=== PATIENT | male | born 1985 | race Caucasian/White ===

== ENCOUNTER 2017-01-24 17:19 | Emergency (ER) | payer OTHER, BC ==
[2017-01-24 17:37] VITALS: BP 126/93
[2017-01-24] MEDS ORDERED: Lidocaine 1% 50 ML MDV INJECT ONE (17:43)
--- NOTE | 2017-01-24 17:50 | EDM.PDOC ---
ED HPI Skin/Rash - General Chief Complaint: Laceration Stated Complaint: RT MIDDLE FINGER LAC Time Seen by Provider: 01/24/17 17:45 Source: Reports: Patient History Limitations: Reports: No limitations - History of Present Illness INITIAL COMMENTS - FREE TEXT/NARRATIVE: Patient is a 31-year-old male who presents ED complaining of a laceration to the tip of the right middle finger. 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 Patient states it bled quite a bit and was controlled with direct pressure. He has minimal pain at this time. Denies any further injuries to the hand. States his tetanus is up-to-date. Past medical history noncontributing. 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(s) - Related Data Allergies Allergy/AdvReac Type Severity Reaction Status Date / Time No Known Allergies Allergy Verified 01/24/17 17:37 Home Meds: Ambulatory Orders Medication Instructions Recorded Confirmed Loratadine/Pseudoephedrine 1 tab PO ONCALL PRN 08/20/16 01/24/17 [Claritin-D 24 Hour Tablet] Acetaminophen/oxyCODONE [Percocet 1 tab PO Q6H PRN #15 tablet 01/24/17 325-5 MG] Doxycycline [Vibramycin] 100 mg PO Q12HR #28 cap 01/24/17 Sertraline [Zoloft] 50 mg PO DAILY 01/24/17 01/24/17 Past Medical History - Past Health History Medical/Surgical History: Denies Medical/Surgical History HEENT History: Reports: Sinusitis Genitourinary History: Reports: Renal calculus Psychiatric History: Reports: Depression - Infectious Disease History Infectious Disease History: Reports: Chicken pox Social & Family History - Family History Family Medical History: Noncontributory - Tobacco Use Smoking Status *Q: Never Smoker Second Hand Smoke Exposure: No - Caffeine Use Caffeine Use: Reports: Soda - Alcohol Use Days Per Week of Alcohol Use: 0 - Recreational Drug Use Recreational Drug Use: No ED ROS GENERAL - Review of Systems Review Of Systems: See Below Musculoskeletal: Reports: other (Crush injury to the tip of the right middle finger with a laceration on the volar aspect) Skin: Reports: other (Laceration) Neurological: Reports: Numbness (Right middle finger), Tingling (Right middle finger) ED EXAM, SKIN/RASH Exam: See Below Exam Limited By: No limitations General Appearance: alert, WD/WN, no apparent distress Ears: hearing grossly normal Nose: normal inspection Throat/Mouth: Normal voice, No airway compromise Neck: normal inspection, supple Respiratory/Chest: no respiratory distress, no accessory muscle use Cardiovascular: normal peripheral pulses, regular rate, rhythm Extremities: other (Laceration to the volar aspect right middle finger with swelling and deformity noted today. No pain noted to palpation of the adjacent fingers, hand, wrist, forearm, elbow, upper arm, or shoulder,) Neurological: alert, oriented, normal cognition, no motor/sensory deficits ( Mild numbness noted to the tip of the affected finger) Psychiatric: normal affect, normal mood Skin: Warm, Dry, Normal color ED SKIN PROCEDURES - Laceration/Wound Repair Right Distal Finger Lac/wound length in cm: 1.5 Appearance: subcutaneous Distal NVT: neuro & vascular intact Anesthetic type: digital Local anesthesia - Lidocaine (Xylocaine): 1% plain Local anesthetic volume: other (8) Skin prep: chlorhexidine (hibiciens), saline, sterile drape Exploration/Debridement/Repair: wound explored, in a bloodless field, explored to base, no foreign material found Closed with: sutures Suture size: 4-0 # of sutures: 8 Suture type: prolene Drain placement: No Sterile dressing applied: nurse Tetanus status addressed: Yes Complications: No Course - Vital Signs Last Recorded V/S: Last Vital Signs Temp 97.5 F 01/24/17 17:33 Pulse 95 01/24/17 17:33 Resp 18 01/24/17 17:33 BP 126/93 H 01/24/17 17:33 Pulse Ox 95 01/24/17 17:33 - Orders/Labs/Meds Orders: Active Orders 24 hr Category Date Time Status Peripheral IV Care [RC] . DIRECTED Care 01/24/17 18:38 Active Fingers Third Digit Rt F7 [CR] Stat Exams 01/24/17 17:43 Taken Peripheral IV Insertion Adult [OM.PC] Stat Oth 01/24/17 18:38 Ordered Meds: Medications Discontinued Medications Generic Name Dose Route Start Last Admin Trade Name Freq PRN Reason Stop Dose Admin Cefazolin Sodium/Dextrose 1 gm 50 mls @ 100 mls/hr 01/24/17 18:37 01/24/17 19 :15 / Premix IV 01/24/17 19:06 100 mls/hr ONETIME ONE Administration Lidocaine HCl 50 ml 01/24/17 17:43 01/24/17 17:56 Xylocaine 1% INJECT 01/24/17 17:44 50 ml ONETIME ONE Administration Sodium Chloride 10 ml 01/24/17 18:37 01/24/17 19:16 Saline Flush FLUSH 10 ml ASDIRECTED PRN Administration Keep Vein Open - Re-Assessments/Exams Free Text/Narrative Re-Assessment/Exam: Ordered lidocaine 1% and also x-ray of the right third digit. Tetanus is up-to- date per patient. 01/24/17 17:55 01/24/17 18:38 X-ray of the right middle finger revealed tuft fracture. Minimally displaced. Ordered ancef 1 gram IV. 01/24/17 20:03 Complicated laceration to the tip of the right middle finger closed with 8 #4.0 sutures with no complications. Splint and dressing applied by nursing staff. Patient will be discharged home with instructions for open finger fracture. Prescription for doxycycline 100mg twice a day for 14 days and short course of percocet tabs. Departure - Departure Time of Disposition: 20:06 Disposition: Home, Self-Care 01 Condition: good Clinical Impression: Open fracture of finger Qualifiers: Encounter type: initial encounter Finger: middle finger Phalanx: distal Fracture alignment: displaced Laterality: right Qualified Code(s): S62.632B - Displaced fracture of distal phalanx of right middle finger, initial encounter for open fracture Prescriptions: Doxycycline [Vibramycin] 100 mg PO Q12HR #28 cap Acetaminophen/oxyCODONE [Percocet 325-5 MG] 1 tab PO Q6H PRN #15 tablet PRN Reason: Pain Instructions: Laceration Care, Adult, [id number], Stitches, [place], or Adhesive Wound Closure, [id number], Pain Medicine Instructions, [id number] Referrals: PCP,None [Primary Care Provider] - Omega Perdomo MD [Physician] - Mitesh Easton MD [Physician] - Forms: ED Department Discharge, Return to Work/School Form Additional Instructions: Cleanse site twice daily with soap and water. Pat dry and reapply antibiotic treatment. Cover with new dressing. Keep area clean and dry. Keep splint on until evaluated by orthopedic surgeon only taking off to cleanse. Elevate when able to reduce swelling and pain. Apply ice to affected areas 6 times daily, 30 minutes in duration, do not place ice directly on the skin. Take Tylenol and ibuprofen in alternating fashion for pain. For severe pain take Percocet one tab every 6 hours as needed. No driving while taking this medication. Followup with orthopedic surgeon in the next week. Sutures will need to be removed in approximately 10-14 days. Return back to the ED for increased pain, increased redness, purulent drainage, or swelling. Refrain from any activities utilizing the right hand. - My Orders Last 24 Hours: My Active Orders 01/24/17 17:43 Fingers Third Digit Rt F7 [CR] Stat 01/24/17 18:38 Peripheral IV Care [RC] . DIRECTED Peripheral IV Insertion Adult [OM.PC] Stat - Assessment/Plan Last 24 Hours: My Active Orders 01/24/17 17:43 Fingers Third Digit Rt F7 [CR] Stat 01/24/17 18:38 Peripheral IV Care [RC] . DIRECTED Peripheral IV Insertion Adult [OM.PC] Stat
[2017-01-24] MEDS ORDERED: Sodium Chloride 0.9% 10 ML Syringe FLUSH PRN (18:37)
[2017-01-24] MEDS ORDERED: ceFAZolin 1 GM in Premix Bag 1 BAG IV ONE (18:37)
--- NOTE | 2017-01-25 07:26 | CR ---
Right third finger: Four views centered to the right third finger were obtained. Comparison: Previous right finger or hand exam is not available. Comminuted fracture noted within the distal phalanx. Mild displacement seen of the distal tuft fragments. No proximal abnormality is seen. Soft tissue swelling is noted. Impression: 1. Comminuted distal phalanx fracture of the right third finger. Soft tissue swelling. Diagnostic code #3
== END 2017-01-24 20:29 | disposition home or self-care (01) ==
LOC: JD.ED 17:19
DX: S62.632B Displaced fracture of distal phalanx of right middle finger, initial encounter for open fracture (principal); W20.8XXA Other cause of strike by thrown, projected or falling object, initial encounter; Y92.69 Other specified industrial and construction area as the place of occurrence of the external cause; Y99.0 Civilian activity done for income or pay; F32.9 Major depressive disorder, single episode, unspecified; Z79.899 Other long term (current) drug therapy
CPT/HCPCS: 12001; 73140; 96365; 99283; J0690; J7050; 99284-25

== ENCOUNTER 2017-06-23 15:30 | Emergency (ER) | payer OTHER ==
[2017-06-23 15:46] VITALS: BP 130/93
[2017-06-23] MEDS ORDERED: Lidocaine 1% 50 ML MDV INJECT ONE (15:58)
--- NOTE | 2017-06-23 16:03 | EDM.PDOC ---
ED HPI GENERAL MEDICAL PROBLEM - General Chief Complaint: Laceration Stated Complaint: LEFT THUMB LACERATION Time Seen by Provider: 06/23/17 15:49 Source of Information: Reports: Patient, RN Notes Reviewed - History of Present Illness INITIAL COMMENTS - FREE TEXT/NARRATIVE: 31-year-old male suffered laceration injury to left thumb a short time ago work. States he cut the thumb on a sharp metal edge. The thumb is not long but was gaping. 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 He is up-to-date with tetanus with his last tetanus immunization only about 5 months ago. - Related Data Allergies Allergy/AdvReac Type Severity Reaction Status Date / Time No Known Allergies Allergy Verified 06/23/17 15:42 Home Meds: Home Meds Loratadine/Pseudoephedrine [Claritin-D 24 Hour Tablet] 1 tab PO ONCALL PRN 08/20 [History] Sertraline [Zoloft] 50 mg PO DAILY 01/24/17 [History] Past Medical History - Past Health History Medical/Surgical History: Denies Medical/Surgical History HEENT History: Reports: Sinusitis Genitourinary History: Reports: Renal Calculus Psychiatric History: Reports: Anxiety - Infectious Disease History Infectious Disease History: Reports: Chicken Pox Social & Family History - Family History Family Medical History: Noncontributory - Tobacco Use Smoking Status *Q: Never Smoker Second Hand Smoke Exposure: No - Caffeine Use Caffeine Use: Reports: Soda - Alcohol Use Days Per Week of Alcohol Use: 0 - Recreational Drug Use Recreational Drug Use: No ED ROS GENERAL - Review of Systems Review Of Systems: See Below Constitutional: Reports: No Symptoms HEENT: Reports: No Symptoms Respiratory: Reports: No Symptoms Cardiovascular: Reports: No Symptoms GI/Abdominal: Reports: No Symptoms Musculoskeletal: Reports: Other (Laceration injury left thumb) Neurological: Denies: Numbness, Tingling ED EXAM, SKIN/RASH Exam: See Below General Appearance: Alert, No Apparent Distress Head: Atraumatic Neck: Supple Respiratory/Chest: No Respiratory Distress Extremities: Other (Less than 1 cm laceration injury volar aspect of left thumb over the IP joint the laceration is gaping. No active bleeding at this time. No other injury to the thumb or remainder of that hand.) Neurological: No Motor/Sensory Deficits Skin: Warm, Dry, Normal Color ED SKIN PROCEDURES - Laceration/Wound Repair Left Hand Lac/Wound length In cm: 1 Appearance: Linear Anesthetic Type: Local Local Anesthesia - Lidocaine (Xylocaine): 1% Plain Suture Size: 3-0 # of Sutures: 3 Course - Vital Signs Last Recorded V/S: Last Vital Signs Temp 99.5 F 06/23/17 15:43 Pulse 96 06/23/17 15:43 Resp 16 06/23/17 15:43 BP 130/93 H 06/23/17 15:43 Pulse Ox 98 06/23/17 15:43 - Orders/Labs/Meds Meds: Medications Discontinued Medications Generic Name Dose Route Start Last Admin Trade Name Freq PRN Reason Stop Dose Admin Lidocaine HCl 50 ml 06/23/17 15:58 06/23/17 16:25 Xylocaine 1% INJECT 06/23/17 15:59 50 ml ONETIME ONE Administration Departure - Departure Time of Disposition: 16:15 Disposition: Home, Self-Care 01 Condition: Fair Clinical Impression: Laceration of finger, Laceration of skin of thumb - Discharge Information Referrals: PCP,None [Primary Care Provider] - Forms: ED Department Discharge Additional Instructions: Laceration care instructions, Kang stitches in for about 10 days, there is no charge if you have those removed at our [facility] clinic, call [phone] for appointment.
== END 2017-06-23 16:43 | disposition home or self-care (01) ==
LOC: JD.ED 15:30
DX: S61.012A Laceration without foreign body of left thumb without damage to nail, initial encounter (principal); F41.9 Anxiety disorder, unspecified; Z87.442 Personal history of urinary calculi; Z79.899 Other long term (current) drug therapy; W45.8XXA Other foreign body or object entering through skin, initial encounter; Y93.89 Activity, other specified; Y99.0 Civilian activity done for income or pay
CPT/HCPCS: 12001; 99282-25; 99283-25

== ENCOUNTER 2020-05-20 17:55 | Emergency (ER) | payer BC ==
[2020-05-20 18:19] VITALS: BP 150/96; PULSE 115
--- NOTE | 2020-05-20 19:11 | EDM.PDOC ---
<Aj Nguyen - Last Filed: 05/20/20 19:03> ED HPI GENERAL MEDICAL PROBLEM - General Chief Complaint: Chest Pain Stated Complaint: L SIDE CHEST PAIN AND ARM PAIN X 3 DAYS Time Seen by Provider: 05/20/20 18:48 Source of Information: Reports: Patient History Limitations: Reports: No Limitations - History of Present Illness INITIAL COMMENTS - FREE TEXT/NARRATIVE: Vinicius is a 34 YO male presenting to the ED with 3 day history of chest pain. Pain is described as intermittent periods of sharp, stabbing pain evolving into a deep ache. Pain began in the area around the left nipple and is now radiating to the midaxillary region and left arm. Currently, pain is rated at a 5 out of 10. Nothing relieves pain. Pain is worsened upon deep respiration and occasionally physical activity. Additional complaints are unable to remember events of yesterday, and narrowing vision when pain becomes severe. Denies loss of consciousness, dizziness, fever, fatigue, cough, shortness of breath upon exercise, palpitations, nausea, vomiting, constipation. Onset Date: 05/17/20 Duration: Day(s): Location: Reports: Chest, Upper Extremity, Left Quality: Reports: Ache, Dull, Sharp, Stabbing Improves with: Reports: None Worsens with: Reports: Breathing, Movement Associated Symptoms: Denies: Fever/Chills, Nausea/Vomiting Left Chest Pain Score (Numeric/FACES): 5 - Related Data Allergies Allergy/AdvReac Type Severity Reaction Status Date / Time No Known Allergies Allergy Verified 05/20/20 18:19 Home Meds: Home Meds Orphenadrine [Norflex] 100 mg PO BID PRN #20 tab 05/20/20 [Rx] predniSONE 20 mg PO ASDIRECTED #15 tab 05/20/20 [Rx] Past Medical History - Past Health History Medical/Surgical History: Denies Medical/Surgical History Cardiovascular History: Reports: None Respiratory History: Reports: None Musculoskeletal History: Reports: None Psychiatric History: Reports: Anxiety Social & Family History - Family History Family Medical History: Noncontributory Cardiac: Reports: None - Tobacco Use Smoking Status *Q: Never Smoker Tobacco Use Within Last Twelve Months: Smokeless Tobacco Packs/Tins Daily: 0.3 - Caffeine Use Caffeine Use: Reports: Soda - Recreational Drug Use Recreational Drug Use: No ED ROS GENERAL - Review of Systems Review Of Systems: See Below (7) Constitutional: Denies: Fever, Chills, Fatigue Respiratory: Denies: Shortness of Breath, Cough Cardiovascular: Reports: Chest Pain. Denies: Dyspnea on Exertion, Lightheadedness, Palpitations, PND GI/Abdominal: Reports: Diarrhea. Denies: Abdominal Pain, Constipation, Nausea, Vomiting Musculoskeletal: Reports: Arm Pain Skin: Reports: No Symptoms Neurological: Denies: Dizziness, Headache, Syncope ED EXAM, GENERAL - Physical Exam Exam: See Below Exam Limited By: No Limitations General Appearance: Alert Eye Exam: Bilateral Eye: PERRL Head: Atraumatic, Normocephalic Respiratory/Chest: No Respiratory Distress, Normal Breath Sounds, No Accessory Muscle Use (Pain aggravated by deep respiration. ) Cardiovascular: Normal Peripheral Pulses, Regular Rate, Rhythm, No Gallop, No Murmur, No Rub, Other (Pain worsens upon palpation. ) Skin Exam: Warm, Dry. No: Diaphoretic Departure - Departure Disposition: Home, Self-Care 01 Clinical Impression: Acute chest wall pain Instructions: Chest Wall Pain, [id number] Referrals: Kassidy Rubin MD [Primary Care Provider] - Forms: ED Department Discharge Additional Instructions: You were evaluated in the ER today regarding your left-sided chest discomfort. Laboratory evaluation and EKG, chest x-ray were done at today's visit, and this demonstrates no acute abnormalities, you are not suffering from a heart attack at today's visit. It is very likely that the chest discomfort you are having is more musculoskeletal, or nerve irritation in nature. As this was reproducible on exam. You have been given a prescription for prednisone, please take as directed, you have also been given a prescription for Norflex, please take as needed for mu scle spasms at night. Highly recommend you try to decrease the amount of work you are doing, as it seems you are overexerting your self, try to keep yourself well-hydrated and eat several small snacks throughout the day if you are not able to have a full meal during your work shift. Please return to the ER at any time if your symptoms should change or worsen. Sepsis Event Note (ED) - Evaluation Sepsis Screening Result: No Definite Risk <Leydi Washington - Last Filed: 05/20/20 20:17> EKG INTERPRETATION EKG Date: 05/20/20 Time: 18:27 Rhythm: NSR Rate (Beats/Min): 87 Irving: LAD-Left Irving Deviation (-68 ) P-Wave: Present QRS: Normal ST-T: Normal QT: Normal Comparison: NA - No Prior EKG EKG Interpretation Comments: Sinus rhythm 87 bpm, incomplete right bundle branch block and left anterior fascicular block pattern, near Q waves in 2 3 and aVF, consider possible old inferior wall DC. Otherwise no acute ischemic changes noted. Reviewed by myself and Dr. Carlos. Course - Vital Signs Last Recorded V/S: Last Vital Signs Temp 97 F 05/20/20 18:16 Pulse 115 H 05/20/20 18:16 Resp 16 05/20/20 18:16 BP 150/96 H 05/20/20 18:16 Pulse Ox 99 05/20/20 18:16 - Orders/Labs/Meds Orders: Active Orders 24 hr Category Date Time Status EKG 12 Lead [EKG Documentation Completion] [RC] ROUTINE Care 05/20/20 18:21 Active Chest 1V Frontal [CR] Stat Exams 05/20/20 18:53 Ordered Labs: Laboratory Tests 05/20/20 05/20/20 05/20/20 Range/Units 19:25 19:25 19:25 WBC 7.70 (4.23-9.07) K/mm3 RBC 5.03 (4.63-6.08) M/mm3 Hgb 15.5 (13.7-17.5) gm/dl Hct 45.1 (40.1-51.0) % MCV 89.7 (79.0-92.2) fl MCH 30.8 (25.7-32.2) pg MCHC 34.4 (32.2-35.5) g/dl RDW Std Deviation 42.0 (35.1-43.9) fL Plt Count 243 (163-337) K/mm3 MPV 10.2 (9.4-12.3) fl Neut % (Auto) 72.1 H (34.0-67.9) % Lymph % (Auto) 17.5 L (21.8-53.1) % [place] % (Auto) 7.5 (5.3-12.2) % Eos % (Auto) 2.1 (0.8-7.0) Baso % (Auto) 0.4 (0.1-1.2) % Neut # (Auto) 5.55 H (1.78-5.38) K/mm3 Lymph # (Auto) 1.35 (1.32-3.57) K/mm3 [place] # (Auto) 0.58 (0.30-0.82) K/mm3 Eos # (Auto) 0.16 (0.04-0.54) K/mm3 Baso # (Auto) 0.03 (0.01-0.08) K/mm3 PT 11.2 (9.7-12.0) SECONDS INR 1.03 APTT 27 (22-31) SECONDS Sodium 141 (136-145) mEq/L Potassium 3.5 (3.5-5.1) mEq/L Chloride 106 (98-107) mEq/L Carbon Dioxide 25 (21-32) mEq/L Anion Gap 13.5 (5-15) BUN 11 (7-18) mg/dL Creatinine 1.1 (0.7-1.3) mg/dL Est Cr Clr Drug Dosing 94.62 mL/min Estimated GFR (MDRD) > 60 (>60) mL/min BUN/Creatinine Ratio 10.0 L (14-18) Glucose 98 (74-106) mg/dL Calcium 8.7 (8.5-10.1) mg/dL Magnesium 2.0 (1.8-2.4) mg/dl Total Bilirubin 0.7 (0.2-1.0) mg/dL AST 12 L (15-37) U/L ALT 13 L (16-63) U/L Alkaline Phosphatase 71 (46-116) U/L Troponin I < 0.017 (0.00-0.056) ng/mL NT-Pro-B Natriuret Pep (0-125) pg/mL Total Protein 6.9 (6.4-8.2) g/dl Albumin 4.1 (3.4-5.0) g/dl Globulin 2.8 gm/dL Albumin/Globulin Ratio 1.5 (1-2) /07/02 Range/Units 19:25 WBC (4.23-9.07) K/mm3 RBC (4.63-6.08) M/mm3 Hgb (13.7-17.5) gm/dl Hct (40.1-51.0) % MCV (79.0-92.2) fl MCH (25.7-32.2) pg MCHC (32.2-35.5) g/dl RDW Std Deviation (35.1-43.9) fL Plt Count (163-337) K/mm3 MPV (9.4-12.3) fl Neut % (Auto) (34.0-67.9) % Lymph % (Auto) (21.8-53.1) % [place] % (Auto) (5.3-12.2) % Eos % (Auto) (0.8-7.0) Baso % (Auto) (0.1-1.2) % Neut # (Auto) (1.78-5.38) K/mm3 Lymph # (Auto) (1.32-3.57) K/mm3 [place] # (Auto) (0.30-0.82) K/mm3 Eos # (Auto) (0.04-0.54) K/mm3 Baso # (Auto) (0.01-0.08) K/mm3 PT (9.7-12.0) SECONDS INR APTT (22-31) SECONDS Sodium (136-145) mEq/L Potassium (3.5-5.1) mEq/L Chloride (98-107) mEq/L Carbon Dioxide (21-32) mEq/L Anion Gap (5-15) BUN (7-18) mg/dL Creatinine (0.7-1.3) mg/dL Est Cr Clr Drug Dosing mL/min Estimated GFR (MDRD) (>60) mL/min BUN/Creatinine Ratio (14-18) Glucose (74-106) mg/dL Calcium (8.5-10.1) mg/dL Magnesium (1.8-2.4) mg/dl Total Bilirubin (0.2-1.0) mg/dL AST (15-37) U/L ALT (16-63) U/L Alkaline Phosphatase (46-116) U/L Troponin I (0.00-0.056) ng/mL NT-Pro-B Natriuret Pep 12 (0-125) pg/mL Total Protein (6.4-8.2) g/dl Albumin (3.4-5.0) g/dl Globulin gm/dL Albumin/Globulin Ratio (1-2) - Re-Assessments/Exams Free Text/Narrative Re-Assessment/Exam: 05/20/20 19:26 I have read and reviewed the student's HPI and examined the patient and agree with VERENICE Garcia-student. Patient will have cardiac labs drawn to rule out cardiac etiology, patient's EKG demonstrates no obvious acute changes of his ST segments or ischemia. Does have a right bundle branch block present, I do bel ieve he is suffering from costochondritis in nature versus musculoskeletal strain. 05/20/20 20:12 Labs demonstrate no sign of acute myocardial infarction. Patient will be discharged home with above plan for costochondritis, and or musculoskeletal strain in nature. Departure - Departure Time of Disposition: 20:13 Condition: Good Sepsis Event Note (ED) - Focused Exam Vital Signs: Vital Signs Temp Pulse Resp BP Pulse Ox 05/20/20 18:16 97 F 115 H 16 150/96 H 99 - My Orders Last 24 Hours: My Active Orders 05/20/20 18:21 EKG 12 Lead [EKG Documentation Completion] [RC] ROUTINE 05/20/20 18:53 Chest 1V Frontal [CR] Stat - Assessment/Plan Last 24 Hours: My Active Orders 05/20/20 18:21 EKG 12 Lead [EKG Documentation Completion] [RC] ROUTINE 05/20/20 18:53 Chest 1V Frontal [CR] Stat
--- NOTE | 2020-05-20 20:16 | CR ---
Chest: Portable view of the chest was obtained. Comparison: No prior chest imaging. Heart size and mediastinum are normal. Lungs are clear with no acute parenchymal change. Bony structures are grossly intact. Impression: 1. Nothing acute is appreciated on portable chest x-ray. Diagnostic code #1 This report was dictated in MDT
== END 2020-05-20 20:49 | disposition home or self-care (01) ==
LOC: JD.ED 17:55
DX: R07.89 Other chest pain (principal); F17.220 Nicotine dependence, chewing tobacco, uncomplicated
CPT/HCPCS: 36415; 71045; 71045-26; 80053; 83735; 83880; 84484; 85025; 85610; 85730; 93005; 93010; 99283; 99285-25

== ENCOUNTER 2021-11-19 10:50 | Emergency (ER) | payer BC, OTHER ==
[2021-11-19 11:11] VITALS: BP 160/92; PULSE 72
[2021-11-19] MEDS ORDERED: Lidocaine 1% 10 ML MDV INJECT ONE (11:14)
--- NOTE | 2021-11-19 11:31 | EDM.PDOC ---
ED HPI GENERAL MEDICAL PROBLEM - General Chief Complaint: Laceration Stated Complaint: LEFT THUMB LAC Time Seen by Provider: 11/19/21 11:19 Source of Information: Reports: Patient, RN Notes Reviewed History Limitations: Reports: No Limitations - History of Present Illness INITIAL COMMENTS - FREE TEXT/NARRATIVE: Patient is a 35-year-old male who presents to the ER for evaluation of a left thumb laceration. 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 This resulted in about a 3 cm linear laceration to the anterior aspect of the patient's thenar eminence. Patient is up-to-date on tetanus. Bleeding is under control at this time. This is fairly superficial but will require sutures to close. Patient denies any other sick-like symptoms, fever/chills, cough/shortness of breath, nausea/vomiting/diarrhea. He is not complaining of any numbness or tingling distal to the injury. Again has all range of motion without any difficulty. Left Hand Pain Score (Numeric/FACES): 3 - Related Data Allergies Allergy/AdvReac Type Severity Reaction Status Date / Time No Known Allergies Allergy Verified 11/19/21 11:12 Home Meds: Home Meds FLUoxetine [PROzac] 40 mg PO DAILY 11/19/21 [History] Past Medical History - Past Health History Medical/Surgical History: Denies Medical/Surgical History HEENT History: Reports: Sinusitis Cardiovascular History: Reports: None Respiratory History: Reports: None Gastrointestinal History: Reports: None Genitourinary History: Reports: Renal Calculus Musculoskeletal History: Reports: None Neurological History: Reports: None Psychiatric History: Reports: Anxiety Endocrine/Metabolic History: Reports: None Hematologic History: Reports: None Immunologic History: Reports: None Oncologic (Cancer) History: Reports: None Dermatologic History: Reports: None - Infectious Disease History Infectious Disease History: Reports: Novel Coronavirus Social & Family History - Family History Family Medical History: No Pertinent Family History Cardiac: Reports: None - Tobacco Use Tobacco Use Status *Q: Current Every Day Tobacco User Years of Tobacco use: 10 Packs/Tins Daily: 1 - Caffeine Use Caffeine Use: Reports: Soda - Recreational Drug Use Recreational Drug Use: No ED ROS GENERAL - Review of Systems Review Of Systems: Comprehensive ROS is negative, except as noted in HPI. ED EXAM, SKIN/RASH Exam: See Below Exam Limited By: No Limitations General Appearance: Alert, WD/WN, No Apparent Distress Respiratory/Chest: No Respiratory Distress, Lungs Clear, Normal Breath Sounds, No Accessory Muscle Use, Chest Non-Tender Cardiovascular: Normal Peripheral Pulses, Regular Rate, Rhythm, No Edema Peripheral Pulses: 2+: Radial (L), Radial (R) Extremities: Normal Range of Motion, Normal Capillary Refill Neurological: Alert, Oriented, Normal Cognition, No Motor/Sensory Deficits Psychiatric: Normal Affect, Normal Mood Skin: Warm, Dry, Normal Color, No Rash, Wound/Incision (3 cm linear laceration to the patient's left anterior thumb on the thenar eminence.) ED SKIN PROCEDURES - Laceration/Wound Repair Left Anterior Proximal Digit - 1st (Thumb) Appearance: Subcutaneous, Mildly Contaminated (pt scrubbed hand with surgical soap) Distal NVT: Neuro & Vascular Intact, No Tendon Injury Anesthetic Type: Local Local Anesthesia - Lidocaine (Xylocaine): 1% Plain Local Anesthetic Volume: 5cc Skin Prep: Chlorhexidine (Hibiciens), Saline Exploration/Debridement/Repair: Wound Explored, In a Bloodless Field, Explored to Base, No Foreign Material Found Closed with: Sutures Lac/Wound length In cm: 3 Suture Size: 4-0 # of Sutures: 5 Suture Type: Prolene, Interrupted, Simple Sterile Dressing Applied: Nurse Tetanus Status Addressed: Yes Complications: No Course - Vital Signs Last Recorded V/S: Last Vital Signs Temp 97.1 F 11/19/21 11:10 Pulse 72 11/19/21 11:10 Resp 20 11/19/21 11:10 BP 160/92 H 11/19/21 11:10 Pulse Ox 100 11/19/21 11:10 - Orders/Labs/Meds Meds: Medications Discontinued Medications Generic Name Dose Route Start Last Admin Trade Name Freq PRN Reason Stop Dose Admin Lidocaine HCl 10 ml 11/19/21 11:14 11/19/21 11:17 Lidocaine 1% 10 Ml Mdv INJECT 11/19/21 11:15 10 ml ONETIME ONE Administration Departure - Departure Time of Disposition: 11:29 Disposition: Home, Self-Care 01 Condition: Good Clinical Impression: Laceration of thumb Qualifiers: Encounter type: initial encounter Damage to nail status: without damage Foreign body presence: without foreign body Laterality: left Qualified Code(s): S61.012A - Laceration without foreign body of left thumb without damage to nail, initial encounter - Discharge Information *PRESCRIPTION DRUG MONITORING PROGRAM REVIEWED*: No *COPY OF PRESCRIPTION DRUG MONITORING REPORT IN PATIENT ELIZABETH: No Instructions: Sutures, Tang, or Adhesive Wound Closure, [id number] Referrals: Kassidy Rubin MD [Primary Care Provider] - Forms: ED Department Discharge Additional Instructions: You have been evaluated in the ED for your laceration. Sutures will need to stay in for 10 days. You may return to the ED or any clinic for removal. Please keep this area clean and dry, you may cleanse with regular soap and water. No vigorous scrubbing. Please try to avoid submerging the affected area in water for prolonged periods of time until the sutures are removed. Watch out for signs of infection like increased redness, swelling, pain at the laceration site, or if you should develop any fevers or chills. Please return to ED if your symptoms change or worsen. Sepsis Event Note (ED) - Focused Exam Vital Signs: Vital Signs Temp Pulse Resp BP Pulse Ox 11/19/21 11:10 97.1 F 72 20 160/92 H 100
== END 2021-11-19 12:25 | disposition home or self-care (01) ==
LOC: JD.ED 10:50
DX: S61.012A Laceration without foreign body of left thumb without damage to nail, initial encounter (principal); Z72.0 Tobacco use; W26.8XXA Contact with other sharp object(s), not elsewhere classified, initial encounter
CPT/HCPCS: 12002; 99282-25